=== PATIENT | female | born 1990 | race Caucasian/White ===

== ENCOUNTER 2020-04-16 01:19 | Inpatient (IN) ==
[2020-04-16 02:49] LABS: Urine Benzodiazepine Screen None Detected (None Detect); Urine Buprenorphine Screen None Detected (None Detect); Urine Cannabinoids Screen None Detected (None Detect); Urine Fentanyl Screen None Detected (None Detect); Urine Hydrocodone Screen None Detected (None Detect); Urine Opiates Screen None Detected (None Detect)
[2020-04-16] MEDS ORDERED: Lactated Ringers 1000 ml BAG 1,000 ML IV ONE (06:28)
[2020-04-16 13:09] LABS: ABS Basophils 0.1 10^3/ul (0-0.2); ABS Monocytes 0.9 10^3/ul (0-0.8); ABS Neutrophils 8.1 10^3/ul (1.5-7.7); Eosinophil % 0.2 %; Hematocrit 37 % (35-47); Lymphocyte % 18.3 %; Mean Corpuscular HGB Conc 35 g/dL (31-36); Mean Corpuscular Hemoglobin 32 pg (27-31); Mean Corpuscular Volume 90 fL (80-97); Mean Platelet Volume 11.3 fL (7.4-10.4); Platelet Count 148 10^3/uL (150-450); Red Blood Count 4.12 10^6 /uL (3.70-4.87); Red Cell Distribution Width 13 % (10-15); White Blood Count 11.2 10^3/uL (3.5-10.8)
[2020-04-16 13:25] LABS: ALT 25 U/L (7-52); Albumin 3.7 g/dL (3.2-5.2); Albumin/Globulin Ratio 1.1 (1-3); Alkaline Phosphatase 223 U/L (34-104); BUN/Creatinine Ratio 16.7 (8-20); Blood Urea Nitrogen 14 mg/dL (6-24); CO2 Carbon Dioxide 20 mmol/L (22-32); Calcium 8.9 mg/dL (8.6-10.3); Chloride 104 mmol/L (101-111); EGFR African American 95.7 (>60); EGFR Non-African American 79.1 (>60); Globulin 3.4 g/dL (2-4); Glucose 73 mg/dL (70-100); Sodium 133 mmol/L (135-145); Total Protein 7.1 g/dL (6.4-8.9); Uric Acid 6.9 mg/dL (2.3-6.6)
[2020-04-16] MEDS: Lactated Ringers 1000 ml BAG 1,000 ML IV SCH ×2 (14:16→23:57)
[2020-04-16] MEDS: Oxytocin in LR 20 UNITS/1,000 ML BAG IVPB SCH (14:16)
[2020-04-16 15:10] LABS: Anion Gap 9 mmol/L (2-11)
[2020-04-16] MEDS ORDERED: Morphine 10 MG/ML VIAL (1 ml) IV ONE (18:04)
[2020-04-16] MEDS ORDERED: Promethazine INJ(RESTRICTED) 25 MG/ML 1 ml VIAL IV ONE (18:05)
[2020-04-17] MEDS ORDERED: Morphine 10 MG/ML VIAL (1 ml) IV ONE (02:18)
[2020-04-17 07:47] LABS: Potassium Redraw 4.1 mmol/L (3.5-5.0)
[2020-04-17] MEDS ORDERED: OBEPIDURAL 250 ML EPIDURAL ONE (09:21)
[2020-04-17 09:24] LABS: ABS Lymphocytes 1.8 10^3/ul (1.0-4.8); ABS Neutrophils 12.5 10^3/ul (1.5-7.7); Hematocrit 35 % (35-47); Lymphocyte % 11.9 %; Mean Corpuscular HGB Conc 35 g/dL (31-36); Mean Corpuscular Hemoglobin 32 pg (27-31); Mean Corpuscular Volume 91 fL (80-97); Nucleated Red Blood Cells % 0.1; Platelet Count 144 10^3/uL (150-450); Red Blood Count 3.78 10^6 /uL (3.70-4.87); Red Cell Distribution Width 13 % (10-15); White Blood Count 15.4 10^3/uL (3.5-10.8)
[2020-04-17 09:53] LABS: Albumin 3.4 g/dL (3.2-5.2); BUN/Creatinine Ratio 17.2 (8-20); Calcium 8.9 mg/dL (8.6-10.3); EGFR African American 91.9 (>60); EGFR Non-African American 75.9 (>60); Globulin 3.4 g/dL (2-4); Potassium 3.6 mmol/L (3.5-5.0); Total Bilirubin 0.4 mg/dL (0.2-1.0); Total Protein 6.8 g/dL (6.4-8.9)
[2020-04-17] MEDS ORDERED: Lactated Ringers 1000 ml BAG 1,000 ML IV ONE (10:06)
[2020-04-17] MEDS ORDERED: Phenylephrine 40 mcg/mL 10mL (400mcg) SYRINGE IV PUSH PRN ×2 (10:06)
[2020-04-17] MEDS ORDERED: Sodium Citrate/Citric Acid LIQ 15 ML UDC PO PRN (10:06)
[2020-04-17] MEDS ORDERED: Lactated Ringers 1000 ml BAG 500 ML IV PRN ×2 (10:06)
[2020-04-17] MEDS ORDERED: Lactated Ringers 1000 ml BAG 1,000 ML IV SCH ×2 (11:00)
[2020-04-17] MEDS ORDERED: OBEPIDURAL 250 ML EPIDURAL SCH (11:00)
[2020-04-17] MEDS ORDERED: diPHENhydraMINE IV 50 MG/ML 1 ml VIAL (BENADRYL) ONE (16:26)
[2020-04-17] MEDS: Oxytocin in LR 20 UNITS/1,000 ML BAG IVPB SCH (17:03)
[2020-04-17] MEDS ORDERED: Ampicillin IV 1 GM VIAL ONE (22:10)
[2020-04-17] MEDS: Gentamicin ADULT 350 MG in NS 0.9% 100 ml BAG 100 ML IVPB SCH (22:34)
[2020-04-17 23:33] LABS: ABS Lymphocytes 2.1 10^3/ul (1.0-4.8); ABS Monocytes 1.4 10^3/ul (0-0.8); ABS Neutrophils 15.3 10^3/ul (1.5-7.7); Hematocrit 30 % (35-47); Hemoglobin 10.1 g/dL (12.0-16.0); Lymphocyte % 11.3 %; Mean Corpuscular HGB Conc 34 g/dL (31-36); Mean Corpuscular Hemoglobin 31 pg (27-31); Mean Corpuscular Volume 92 fL (80-97); Mean Platelet Volume 10.9 fL (7.4-10.4); Platelet Count 118 10^3/uL (150-450); Red Blood Count 3.25 10^6 /uL (3.70-4.87); Red Cell Distribution Width 13 % (10-15); White Blood Count 18.8 10^3/uL (3.5-10.8)
[2020-04-18] MEDS ORDERED: Dibucaine 1% OINT 28.35 GM TUBE PR PRN (00:42)
[2020-04-18] MEDS ORDERED: Glycerin ADULT 2.4 gm SUPP PR PRN (00:42)
[2020-04-18] MEDS ORDERED: Witch Hazel PAD JAR TOPICAL PRN (00:42)
[2020-04-18] MEDS ORDERED: Lactated Ringers 1000 ml BAG 1,000 ML IV SCH (01:00)
[2020-04-18] MEDS: Ampicillin ADVAN 2 GM in NS 0.9% 100 ml BAG 100 ML IVPB SCH ×4 (01:02→17:13)
[2020-04-18] MEDS ORDERED: Lidocaine 1% VIAL 10 MG/ML VIAL ONE (03:04)
[2020-04-18 08:09] LABS: Hematocrit 27 % (35-47); Hemoglobin 9.5 g/dL (12.0-16.0); Mean Corpuscular HGB Conc 35 g/dL (31-36); Mean Corpuscular Hemoglobin 31 pg (27-31); Mean Corpuscular Volume 89 fL (80-97); Mean Platelet Volume 10.5 fL (7.4-10.4); Platelet Count 102 10^3/uL (150-450); Red Blood Count 3.04 10^6 /uL (3.70-4.87); Red Cell Distribution Width 14 % (10-15); White Blood Count 25.8 10^3/uL (3.5-10.8)
[2020-04-18 08:56] LABS: ABS Lymphocytes 2.4 10^3/ul (1.0-4.8); ABS Monocytes 1.7 10^3/ul (0-0.8); ABS Neutrophils 21.7 10^3/ul (1.5-7.7); Lymphocyte % 9.3 %
[2020-04-19] MEDS ORDERED: Naloxone 0.4 mg VIAL 0.4 mg/ml 1 ml VIAL IV PRN (00:47)
[2020-04-19] MEDS ORDERED: diPHENhydraMINE IV 50 MG/ML 1 ml VIAL (BENADRYL) IV PRN (00:47)
[2020-04-19] MEDS ORDERED: Ondansetron 4 mg VIAL 2 MG/ML 2 ml VIAL IV PRN (00:47)
[2020-04-19] MEDS ORDERED: Acetaminophen IV 1 GM/100ML 1,000 MG/100 ML VIAL IVPB ONE (01:43)
[2020-04-19] MEDS: Ampicillin ADVAN 2 GM in NS 0.9% 100 ml BAG 100 ML IVPB SCH (07:20)
[2020-04-19] MEDS: Gentamicin ADULT 350 MG in NS 0.9% 100 ml BAG 100 ML IVPB SCH (07:20)
[2020-04-19 09:04] LABS: ABS Eosinophils 0.1 10^3/ul (0-0.6); ABS Lymphocytes 2.9 10^3/ul (1.0-4.8); ABS Monocytes 0.5 10^3/ul (0-0.8); ABS Neutrophils 13.7 10^3/ul (1.5-7.7); Eosinophil % 0.6 %; Hematocrit 25 % (35-47); Hemoglobin 8.7 g/dL (12.0-16.0); Lymphocyte % 16.8 %; Mean Corpuscular HGB Conc 35 g/dL (31-36); Mean Corpuscular Hemoglobin 31 pg (27-31); Mean Corpuscular Volume 90 fL (80-97); Mean Platelet Volume 9.5 fL (7.4-10.4); Platelet Count 148 10^3/uL (150-450); Red Blood Count 2.78 10^6 /uL (3.70-4.87); Red Cell Distribution Width 14 % (10-15); White Blood Count 17.2 10^3/uL (3.5-10.8)
[2020-04-19 20:21] VITALS: BP 127/84
== END 2020-04-19 22:32 | disposition home or self-care (01) | DRG 806 ==
LOC: MCHOBOUT 01:19 → MCHOB 01:47
PROVIDERS: ADMIT Obstetrics & Gynecology; ATTEND Obstetrics & Gynecology